=== PATIENT | female | born 1935 | race Caucasian/White ===

== ENCOUNTER 2024-12-07 11:20 | Inpatient (IN) | payer OTHER ==
[2024-12-07] MEDS ORDERED: KETOROLAC TROMETHAMINE 15 MG/ML VIAL ONE (13:31)
[2024-12-07] MEDS: KETOROLAC TROMETHAMINE 15 MG/ML VIAL IVPUSH ONE (13:39)
[2024-12-07 13:48] LABS: ABSOLUTE IMMATURE GRANULOCYTES 0.11 x10^3/uL (0.0-0.031); BASOPHILS # 0.05 x10^3/uL (0.01-0.08); EOSINOPHIL % 0.2 % (0.7-5.8); EOSINOPHILS # 0.04 x10^3/uL (0.04-0.36); MCHC 31.7 g/dl (32.2-35.5); MEAN CELL VOLUME 87.9 fl (79.4-94.8); MEAN PLT VOLUME 9.7 fl (9.4-12.3); MONOCYTE # 0.88 x10^3/uL (0.24-0.86); MONOCYTE % 4.4 % (4.7-12.5); RDW 14.0 % (12.5-17.0)
[2024-12-07 13:56] LABS: INR 2.31 (0.83-1.09); PROTHROMBIN TIME (PATIENT) 25.2 SEC (9.7-13.0)
[2024-12-07 14:09] LABS: ACTIVATED PTT 60.5 SECONDS (25.2-36.5)
[2024-12-07 14:17] LABS: CO2 18 mmol/L (21-32); GLUCOSE,RANDOM 152 mg/dL (74-106)
[2024-12-07 14:20] LABS: CREATININE 1.1 mg/dL (0.55-1.3); SGOT/AST 59 U/L (15-37); SGPT/ALT 18 U/L (13-61)
[2024-12-07 14:22] LABS: TOT PROT 6.9 g/dl (6.4-8.2)
[2024-12-07 14:23] LABS: ALK PHOS 114 U/L (45-117)
[2024-12-07 14:34] LABS: LACTIC ACID 2.7 mmol/L (0.4-2.0)
[2024-12-07 14:50] LABS: BG HCT 47.0 % (32.4-45.2); VENOUS BASE EXCESS -5.1 mmol/L (-2-2); VENOUS O2 SATURATION 80.9 % (70-80); VENOUS PCO2 31.0 mmHg (38-52); VENOUS PH 7.393 (7.310-7.410)
[2024-12-07] MEDS ORDERED: VANCOMYCIN HCL 1,500 MG in DEXTROSE 5%-WATER - 500 ML IVPB ONE (15:41)
[2024-12-07 16:11] LABS: HIV INTERPRETATION NEGATIVE (NEGATIVE)
[2024-12-07 16:14] LABS: HCV DIAGNOSTIC IN-HOUSE W/RFLX NON-REACTIVE (NONREACTIVE)
[2024-12-07 17:14] LABS: LACTIC ACID 5.4 mmol/L (0.4-2.0)
[2024-12-07] MEDS ORDERED: PIPERACILLIN/TAZOB 4.5 GM 4.5 GM/100 ML BAG IVPB ONE (17:35)
[2024-12-07] MEDS: PIPERACILLIN/TAZOB 4.5 GM 4.5 GM in DEXTROSE 5%-WATER 100 ML IVPB ONE (17:43)
[2024-12-07] MEDS: LACTATED RINGERS SOLUTION 1,000 ML/1,000 ML INFUS.BAG IV STA ×3 (17:43→23:16)
[2024-12-07 17:56] LABS: URINE COLOR RED
[2024-12-07 17:57] LABS: URINE BILIRUBIN MODERATE (NEGATIVE); URINE GLUCOSE (UA) NEGATIVE (NEGATIVE); URINE PROTEIN 30 (NEGATIVE); URINE UROBILINOGEN 0.2 mg/dL (0.2-1.0)
[2024-12-07] MEDS ORDERED: ACETAMINOPHEN INJECTION 100 ML ONE (18:45)
[2024-12-07] MEDS: SODIUM CHLORIDE 0.9% 500 ML INFUS.BAG IV ONE (19:09)
[2024-12-07] MEDS: ACETAMINOPHEN 1000 MG/100 ML BAG IVPB ONE (19:09)
[2024-12-07] MEDS: VANCOMYCIN HCL IN 5 % DEXTROSE 1,500 MG/300 ML BAG IVPB ONE (19:09)
[2024-12-07] MEDS ORDERED: SODIUM ZIRCONIUM CYCLOSILICATE (LOKELMA) 5 GM PACKET ONE (20:29)
[2024-12-07 21:31] LABS: LACTIC ACID 3.8 mmol/L (0.4-2.0)
[2024-12-07 22:33] LABS: LACTIC ACID 3.4 mmol/L (0.4-2.0)
[2024-12-08 07:50] LABS: ABSOLUTE IMMATURE GRANULOCYTES 0.07 x10^3/uL (0.0-0.031); BASOPHILS # 0.05 x10^3/uL (0.01-0.08); EOSINOPHIL % 3.5 % (0.7-5.8); EOSINOPHILS # 0.40 x10^3/uL (0.04-0.36); MCHC 31.2 g/dl (32.2-35.5); MEAN CELL VOLUME 88.6 fl (79.4-94.8); MEAN PLT VOLUME 9.8 fl (9.4-12.3); MONOCYTE # 0.73 x10^3/uL (0.24-0.86); MONOCYTE % 6.3 % (4.7-12.5); RDW 14.2 % (12.5-17.0)
[2024-12-08 08:15] LABS: CO2 24.0 mmol/L (21-32)
[2024-12-08 08:16] LABS: GLUCOSE,RANDOM 106.0 mg/dL (74-106)
[2024-12-08 08:19] LABS: CREATININE 1.0 mg/dL (0.55-1.3)
[2024-12-08] MEDS: PIPERACILLIN/TAZOB 3.375 GM 3.375 GM in DEXTROSE 5%-WATER - 50 ML IVPB ONE (10:02)
[2024-12-08] MEDS: LACTATED RINGERS SOLUTION 1000 ML INFUS.BAG IV STA (10:30)
[2024-12-08] MEDS: VANCOMYCIN 1 GM PREMIX (F) 1 GM/200 ML BAG IVPB SCH (10:30)
[2024-12-08] MEDS: SODIUM ZIRCONIUM CYCLOSILICATE (LOKELMA) 5 GM PACKET PO ONE (10:31)
[2024-12-08 11:01] VITALS: BMI 26.9
[2024-12-08] MEDS: DEXTROSE 5%-0.45% SALINE 1,000 ML IV SCH (11:05)
[2024-12-08] MEDS: PIPERACILLIN/TAZOB 3.375 GM 3.375 GM in DEXTROSE 5%-WATER - 50 ML IVPB SCH (15:08)
[2024-12-08] MEDS: SODIUM PHOSPHATE/NA BIPHOS 133 ML ENEMA PR ONE (19:27)
[2024-12-08] MEDS: HEPARIN NA (PORCINE) 5,000 UNITS/ML 1ML VIAL SQ SCH (21:26)
[2024-12-09] MEDS: VANCOMYCIN 1,000 MG in DEXTROSE 5%-WATER - 250 ML IVPB SCH (09:53)
[2024-12-09] MEDS: PIPERACILLIN/TAZOB 3.375 GM 3.375 GM in DEXTROSE 5%-WATER - 50 ML IVPB SCH (15:34)
[2024-12-09] MEDS: VANCOMYCIN/WATER FOR INJ (PEG) 1 GM/200 ML BAG IVPB SCH (16:08)
[2024-12-09] MEDS: VANCOMYCIN 1 GM PREMIX (F) 1 GM/200 ML BAG IVPB SCH (16:15)
[2024-12-10 10:20] LABS: ABSOLUTE IMMATURE GRANULOCYTES 0.04 x10^3/uL (0.0-0.031); BASOPHILS # 0.05 x10^3/uL (0.01-0.08); EOSINOPHIL % 5.6 % (0.7-5.8); EOSINOPHILS # 0.40 x10^3/uL (0.04-0.36); MCHC 31.5 g/dl (32.2-35.5); MEAN CELL VOLUME 87.9 fl (79.4-94.8); MEAN PLT VOLUME 9.8 fl (9.4-12.3); MONOCYTE # 0.48 x10^3/uL (0.24-0.86); MONOCYTE % 6.7 % (4.7-12.5); RDW 14.0 % (12.5-17.0)
[2024-12-10 11:08] VITALS: RESP 18
[2024-12-10 11:34] LABS: GLUCOSE,RANDOM 107.0 mg/dL (74-106)
[2024-12-10 11:35] LABS: CO2 22.0 mmol/L (21-32)
[2024-12-10 11:38] LABS: CREATININE 0.8 mg/dL (0.55-1.3); SGOT/AST 16.0 U/L (15-37); SGPT/ALT 11.0 U/L (13-61)
[2024-12-10 11:39] LABS: TOT PROT 5.3 g/dl (6.4-8.2)
[2024-12-10 11:40] LABS: ALK PHOS 85.0 U/L (45-117)
[2024-12-10 15:49] VITALS: BP 140/73; PULSE 83; TEMP 98.3
== END 2024-12-10 17:46 | DRG 689 ==
LOC: JER 11:20 → JERBED 18:30 → J8W 21:13
PROVIDERS: ADMIT Internal Medicine; ATTEND Internal Medicine
DX: N39.0 Urinary tract infection, site not specified (principal); R53.2 Functional quadriplegia; I48.91 Unspecified atrial fibrillation; D73.9 Disease of spleen, unspecified; G35 Multiple sclerosis; E87.5 Hyperkalemia; G89.29 Other chronic pain; R13.10 Dysphagia, unspecified; D72.829 Elevated white blood cell count, unspecified; E86.0 Dehydration; R13.19 Other dysphagia; K59.00 Constipation, unspecified; E78.5 Hyperlipidemia, unspecified; B95.2 Enterococcus as the cause of diseases classified elsewhere; Z74.01 Bed confinement status; Z95.0 Presence of cardiac pacemaker
CPT/HCPCS: 36415; 71045-TC-FY; 74174-TC; 80048; 80053; 81003; 82272; 82803; 83605; 83690; 83735; 84100; 84132; 84484; 85025; 85610; 85730; 86803; 86850; 86900; 86901; 87040; 87086; 87389; 87637-QW; 93005; 93010; 99291; 99292; Q9967